=== PATIENT | male | born 1950 | race Caucasian/White ===

== ENCOUNTER 2024-02-08 11:49 | Emergency (ER) | payer OTHER ==
[2024-02-08] MEDS ORDERED: NA CHLORIDE 0.9% 2,000 ML ONE (11:59)
[2024-02-08 12:15] LABS: Absolute Eosinophils 0.1 K/uL (0-0.5); Absolute Lymphocytes (CBC) 1.6 K/uL (0.7-4.9); Absolute Monocytes 0.6 K/uL (0.1-1.3); Absolute Neutrophil 4.3 K/uL (1.8-8.0); Basophils % 0.6 % (0-1.3); Eosinophils % 1.8 % (0-4.4); Hematocrit 37.6 % (39.6-49.0); Hemoglobin 12.6 g/dL (13.6-17.9); Lymphocytes % 23.9 % (15.3-44.8); MCH 30.6 pg (27.0-35.0); MCHC 33.6 g/dL (32.0-36.0); MCV 91.1 fL (80-100); MPV 8.7 fL (7.6-11.3); Monocytes % 9.8 % (3.3-12.3); Neutrophils % 63.9 % (41.7-73.7); Platelets 232 thou/uL (152-406); RBC Red Blood Cell Count 4.13 M/uL (4.33-5.43)
--- NOTE | 2024-02-08 12:24 | RAD REPORT ---
EXAM DESCRIPTION: Pooja Single View02/08/2024 12:14 pm CLINICAL HISTORY: cough COMPARISON: none FINDINGS: The lungs appear clear of acute infiltrate. The heart is normal size IMPRESSION: No acute abnormalities displayed
[2024-02-08 12:35] LABS: Albumin 3.9 g/dL (3.4-5.0); Albumin/Globulin Ratio 1.3 (1.1-1.8); Bilirubin Direct 0.2 mg/dL (0-0.2); Bilirubin Indirect, Calculated 0.4 mg/dL (0.2-0.8); Bilirubin Total 0.6 mg/dL (0.2-1.0); Magnesium 1.8 mg/dL (1.6-2.4); Protein, Total 6.9 g/dL (6.4-8.2); Troponin High Sensitivity 4.3 pg/mL (<58.9)
--- NOTE | 2024-02-08 13:48 | ER ---
Nurse's Notes [facility] Name: Steven Miles Age: 73 yrs Sex: Male : 1950 Arrival Date: 02/08/2024 Time: 11:49 Bed 5 Private MD: Diagnosis: Weakness;Heat exhaustion, unspecified Presentation: 02/07 11:53 Chief complaint: EMS states: Near syncopal episode while working outside in the sun. rs5 Denies chest pain, SOB or blurry vision at this moment. Coronavirus screen: At this time, the client does not indicate any symptoms associated with coronavirus-19. Ebola Screen: No symptoms or risks identified at this time. Initial Sepsis Screen: Does the patient meet any 2 criteria? No. Patient's initial sepsis screen is negative. Does the patient have a suspected source of infection? No. Patient's initial sepsis screen is negative. Risk Assessment: Do you want to hurt yourself or someone else? Patient reports no desire to harm self or others. Onset of symptoms was February 08, 2024. Care prior to arrival: IV initiated. 18 GA, in the right antecubital area. 11:53 Method Of Arrival: EMS: [facility] rs5 11:53 Acuity: REMEDIOS 3 rs5 Triage Assessment: 11:55 General: Appears in no apparent distress. comfortable, Behavior is calm, cooperative. rs5 Pain: Denies pain. Historical: - Allergies: 11:55 No Known Allergies; rs5 - PMHx: 11:55 Hypertensive disorder; rs5 - PSHx: 11:55 None; rs5 - Immunization history:: Adult Immunizations up to date. - Infectious Disease History:: Denies. - Social history:: Smoking status: Patient denies any tobacco usage or history of. Screenin:[address] [facility] ED Fall Risk Assessment (Adult) History of falling in the last 3 months, rs5 including since admission No falls in past 3 months (0 pts) Confusion or Disorientation No (0 pts) Intoxicated or Sedated No (0 pts) Impaired Gait No (0 pts) Mobility Assist Device Used No (0 pt) Altered Elimination No (0 pt) Score/Fall Risk Level 0 - 2 = Low Risk Oriented to surroundings, Maintained a safe environment. 11:55 Abuse screen: Denies threats or abuse. Nutritional screening: No deficits noted. rs5 Tuberculosis screening: No symptoms or risk factors identified. Assessment: 11:53 General: Appears in no apparent distress. comfortable, Behavior is calm, cooperative. rs5 Pain: Denies pain. Neuro: Level of Consciousness is awake, alert, obeys commands, Oriented to person, place, time, situation. Cardiovascular: Patient's skin is warm and dry. Respiratory: Airway is patent Respiratory effort is even, unlabored, Respiratory pattern is regular, symmetrical. GI: Abdomen is round non-distended, Abd is soft and non tender X 4 quads. : No signs and/or symptoms were reported regarding the genitourinary system. EENT: No signs and/or symptoms were reported regarding the EENT system. Derm: Skin is intact, Skin is pink, warm \T\ dry. Musculoskeletal: Range of motion: intact in all extremities. 13:01 Reassessment: Patient and/or family updated on plan of care and expected duration. Pain rs5 level reassessed. Patient is alert, oriented x 3, equal unlabored respirations, skin warm/dry/pink. 14:02 Reassessment: Patient and/or family updated on plan of care and expected duration. Pain rs5 level reassessed. Patient is alert, oriented x 3, equal unlabored respirations, skin warm/dry/pink. Vital Signs: 11:53 BP 122 / 77; Pulse 71; Resp 17; Temp 97.8(O); Pulse Ox 98% on R/A; rs5 13:39 BP 115 / 69; Pulse 69; Resp 17; Pulse Ox 98% on R/A; rs5 14:02 BP 121 / 72; Pulse 73; Resp 17; Pulse Ox 98% on R/A; rs5 ED Course: 11:52 Patient arrived in ED. pascual 11:52 Sergo Pittman MD is Attending Physician. pascual 11:52 John Murillo, PERRI is Primary Nurse. rs5 11:55 Triage completed. rs5 11:55 No provider procedures requiring assistance completed. rs5 11:55 Patient has correct armband on for positive identification. Placed in gown. Bed in low rs5 position. Call light in reach. Side rails up X2. 12:09 EKG done, by ED staff, reviewed by Sergo Pittman MD. cc6 12:16 XRAY Chest (1 view) In Process Unspecified. EDMS 14:02 IV discontinued, intact, bleeding controlled, No redness/swelling at site. Pressure rs5 dressing applied. Administered Medications: 12:16 Drug: NS 0.9% IV 1000 ml IV at 1 bolus Per protocol; 1000 mL bolus Route: IV; Rate: 1 rs5 bolus; Site: right antecubital; 13:00 Follow up: IV Status: Completed infusion rs5 12:16 Drug: NS 0.9% IV 1000 ml IV at 1 bolus Per protocol; 1000 mL bolus Route: IV; Rate: 1 rs5 bolus; Site: right antecubital; 13:30 Follow up: Response: No adverse reaction; IV Status: Completed infusion rs5 Medication: 13:39 VIS not applicable for this client. rs5 Outcome: 13:47 Discharge ordered by . pascual 14:02 Discharged to home ambulatory, rs5 14:02 Condition: stable 14:02 Discharge instructions given to patient, family, Instructed on discharge instructions, follow up and referral plans. Demonstrated understanding of instructions, follow-up care, 14:04 Patient left the ED. rs5 Signatures: Dispatcher [employer] Sergo Humphreys MD MD cha Sotelo, Ricky, RN RN rs5 Bella Cutler, RN RN cc6
--- NOTE | 2024-02-08 13:48 | EDPHYS ---
Physician Documentation [facility] Name: Steven Miles Age: 73 yrs Sex: Male : 1950 Arrival Date: 02/08/2024 Time: 11:49 Bed 5 Private MD: ED Physician Sergo Pittman HPI: 02/07 13:43 This 73 yrs old Male presents to ER via EMS with complaints of Heat Exposure. pascual 13:43 over heated. Onset: The symptoms/episode began/occurred just prior to arrival. Severity pascual of symptoms: At their worst the symptoms were moderate in the emergency department the symptoms are unchanged. The patient has not experienced similar symptoms in the past. Historical: - Allergies: 11:55 No Known Allergies; rs5 - PMHx: 11:55 Hypertensive disorder; rs5 - PSHx: 11:55 None; rs5 - Immunization history:: Adult Immunizations up to date. - Infectious Disease History:: Denies. - Social history:: Smoking status: Patient denies any tobacco usage or history of. ROS: 13:44 Constitutional: Negative for fever, chills, and weight loss, Eyes: Negative for injury, pascual pain, redness, and discharge, ENT: Negative for injury, pain, and discharge, Neck: Negative for injury, pain, and swelling, Cardiovascular: Negative for chest pain, palpitations, and edema, Respiratory: Negative for shortness of breath, cough, wheezing, and pleuritic chest pain, Abdomen/GI: Negative for abdominal pain, nausea, vomiting, diarrhea, and constipation, Back: Negative for injury and pain, : Negative for injury, bleeding, discharge, and swelling, MS/Extremity: Negative for injury and deformity, Skin: Negative for injury, rash, and discoloration, Psych: Negative for depression, anxiety, suicide ideation, homicidal ideation, and hallucinations, Allergy/Immunology: Negative for hives, rash, and allergies, Endocrine: Negative for neck swelling, polydipsia, polyuria, polyphagia, and marked weight changes, Hematologic/Lymphatic: Negative for swollen nodes, abnormal bleeding, and unusual bruising, 13:44 Neuro: Positive for weakness, Exam: 13:44 Constitutional: This is a well developed, well nourished patient who is awake, alert, pascual and in no acute distress. Head/Face: Normocephalic, atraumatic. Eyes: Pupils equal round and reactive to light, extra-ocular motions intact. Lids and lashes normal. Conjunctiva and sclera are non-icteric and not injected. Cornea within normal limits. Periorbital areas with no swelling, redness, or edema. ENT: Nares patent. No nasal discharge, no septal abnormalities noted. Tympanic membranes are normal and external auditory canals are clear. Oropharynx with no redness, swelling, or masses, exudates, or evidence of obstruction, uvula midline. Mucous membranes moist. Neck: Trachea midline, no thyromegaly or masses palpated, and no cervical lymphadenopathy. Supple, full range of motion without nuchal rigidity, or vertebral point tenderness. No Meningismus. Chest/axilla: Normal chest wall appearance and motion. Nontender with no deformity. No lesions are appreciated. Cardiovascular: Regular rate and rhythm with a normal S1 and S2. No gallops, murmurs, or rubs. Normal PMI, no JVD. No pulse deficits. Respiratory: Lungs have equal breath sounds bilaterally, clear to auscultation and percussion. No rales, rhonchi or wheezes noted. No increased work of breathing, no retractions or nasal flaring. Abdomen/GI: Soft, non-tender, with normal bowel sounds. No distension or tympany. No guarding or rebound. No evidence of tenderness throughout. Back: No spinal tenderness. No costovertebral tenderness. Full range of motion. Male : Normal genitalia with no discharge or lesions. Skin: Warm, dry with normal turgor. Normal color with no rashes, no lesions, and no evidence of cellulitis. MS/ Extremity: Pulses equal, no cyanosis. Neurovascular intact. Full, normal range of motion. Neuro: Awake and alert, GCS 15, oriented to person, place, time, and situation. Cranial nerves II-XII grossly intact. Motor strength 5/5 in all extremities. Sensory grossly intact. Cerebellar exam normal. Normal gait. Psych: Awake, alert, with orientation to person, place and time. Behavior, mood, and affect are within normal limits. 13:44 ECG was reviewed by the Attending Physician. 13:45 Musculoskeletal/extremity: DVT Exam: No signs of deep vein thrombosis. no pain, no pascual swelling, no tenderness, negative Homans' sign noted on exam, no appreciated bluish discoloration, no erythema, no increased warmth, Vital Signs: 11:53 BP 122 / 77; Pulse 71; Resp 17; Temp 97.8(O); Pulse Ox 98% on R/A; rs5 13:39 BP 115 / 69; Pulse 69; Resp 17; Pulse Ox 98% on R/A; rs5 14:02 BP 121 / 72; Pulse 73; Resp 17; Pulse Ox 98% on R/A; rs5 MDM: 11:52 Patient medically screened. pascual 11:53 Patient medically screened. pascual 13:45 Differential Diagnosis altered mental status, sepsis, flu. Differential diagnosis: pascual cardiac arrhythmia, generalized weakness, head injury, hyperventilation, hypovolemia, idiopathic dizziness, near-syncope, sepsis, syncope, TIA. Data reviewed: vital signs, nurses notes, lab test result(s), EKG, radiologic studies, plain films. Consideration of Admission/Observation Escalation of care including admission/observation considered. I considered the following discharge prescriptions or medication management in the emergency department Medications were administered in the Emergency Department. See MAR. Independent interpretation of the following test(s) in the Emergency Department EKG: See my EKG interpretation above. Test considered but Not performed: Ultrasound no 2 d echo. Historians other than the Patient: Family Member: son well informed. Care significantly affected by the following chronic conditions: Hypertension. 02/07 11:53 Order name: Basic Metabolic Panel; Complete Time: 13:42 [facility] 02/07 11:53 Order name: CBC with Diff; Complete Time: 12:24 [facility] 02/07 11:53 Order name: LFT's; Complete Time: 13:42 [facility] 02/07 11:53 Order name: Magnesium; Complete Time: 13:42 [facility] 02/07 11:53 Order name: NT PRO-BNP; Complete Time: 13:42 [facility] 02/07 11:53 Order name: Troponin HS; Complete Time: 13:42 [facility] 02/07 11:53 Order name: CPK; Complete Time: 13:42 [facility] 02/07 11:53 Order name: XRAY Chest (1 view); Complete Time: 13:42 [facility] 02/07 11:53 Order name: EKG; Complete Time: 11:54 [facility] 02/07 11:53 Order name: Cardiac monitoring; Complete Time: 12:09 [facility] 02/07 11:53 Order name: EKG - Nurse/Tech; Complete Time: 12:09 [facility] 02/07 11:53 Order name: IV Saline Lock; Complete Time: 12:16 [facility] 02/07 11:53 Order name: Labs collected and sent; Complete Time: 12:16 [facility] 02/07 11:53 Order name: O2 Per Protocol; Complete Time: 12:16 [facility] 02/07 11:53 Order name: O2 Sat Monitoring; Complete Time: 12:17 [facility] 02/07 11:53 Order name: PO challenge; Complete Time: 12:30 [facility] EC:44 Rate is 58 beats/min. Rhythm is regular. QRS [place] is Normal. [place] interval is normal. QRS pascual interval is normal. QT interval is normal. No Q waves. T waves are Normal. No ST changes noted. Clinical impression: Sinus bradycardia and No evidence of ischemia. Interpreted by me. Reviewed by me. Administered Medications: 12:16 Drug: NS 0.9% IV 1000 ml IV at 1 bolus Per protocol; 1000 mL bolus Route: IV; Rate: 1 rs5 bolus; Site: right antecubital; 13:00 Follow up: IV Status: Completed infusion rs5 12:16 Drug: NS 0.9% IV 1000 ml IV at 1 bolus Per protocol; 1000 mL bolus Route: IV; Rate: 1 rs5 bolus; Site: right antecubital; 13:30 Follow up: Response: No adverse reaction; IV Status: Completed infusion rs5 Disposition Summary: 02/08/24 13:47 Discharge Ordered Notes: Location: Home pascual Problem: new pascual Symptoms: have improved pascual Condition: Stable pascual Diagnosis - Weakness pascual - Heat exhaustion, unspecified pascual Followup: pascual - With: Private Physician - When: 2 - 3 days - Reason: Recheck today's complaints, Continuance of care, Re-evaluation by your physician Discharge Instructions: - Discharge Summary Sheet pascual - Near-Syncope pascual - Weakness pascual - Heat Exhaustion pascual - Weakness, [id number] pascual - Rehydration, Adult pascual - Deconditioning pascual - Preventing Heat Exhaustion, Adult pascual Forms: - Medication Reconciliation Form pascual - Antibiotic Education pascual - Prescription Opioid Use pascual - Patient Portal Instructions pascual - Leadership Thank You Letter pascual Signatures: Dispatcher [employer] Srego Humphreys MD MD cha Sotelo, Ricky RN RN rs5 Corrections: (The following items were deleted from the chart) 11:54 11:54 Chest Single View+[email or web address] ordered. EDMS EDMS
[2024-02-08 14:09] VITALS: TEMP 97.8; O2SAT 98
[2024-02-08 14:11] VITALS: BP 121/72
--- NOTE | 2024-02-13 18:04 | EKG ---
Test Date: 2024-02-08 Test Time: 12:04:28 Sr Risk Management Consultant: MARCO A MEASUREMENT RESULTS: Intervals: Rate: 58 ME: 194 QRSD: 94 QT: 410 QTc: 402 [place]: P: 70 ME: 194 QRS: 56 T: 61 INTERPRETIVE STATEMENTS: Sinus bradycardia Otherwise normal ECG No previous ECG available for comparison Electronically Signed On 02-13-24 17:52:59 CDT by Vamshi Lew
== END 2024-02-08 14:04 | disposition home or self-care (01) ==
LOC: ER 11:49
DX: T67.5XXA Heat exhaustion, unspecified, initial encounter (principal); R53.1 Weakness; I10 Essential (primary) hypertension
CPT/HCPCS: 36415; 71045; 80048; 80076; 82550; 83735; 83880; 84484; 85025; 93005; 96360; 99284; J7030